=== PATIENT | male | born 1935 | race Caucasian/White ===

== ENCOUNTER 2018-01-29 08:17 | Day surgery (SDC) | payer MEDICARE, BC, OTHER ==
[~2018-01-29 08:17] MED LIST: ACETAMINOPHEN 325 MG TAB PO; AcetaZOLAMIDE 500MG INJECTION (J1120) IV; PHENYLEPHRINE HCL 10 % OPHTH. SOL 5ML OS; PROPARACAINE 0.5% OPHTH SOL 15ML OS
[2018-01-29] MEDS: TROPICAMIDE 1% OPHTH SOLN 2ML OS (09:34)
[2018-01-29] MEDS: PHENYLEPHRINE 2.5% OPHTH SOL 2ML OS (09:34)
[2018-01-29] MEDS: LIDOCAINE 3.5 % 1ML OPHTH TOPICAL GEL OU (09:34)
[2018-01-29] MEDS: OFLOXACIN 0.3 % (OCUFLOX) OPTH SOL 5ML OS (09:34)
[2018-01-29] MEDS: CYCLOPENTOLATE 2% OPHTH SOLN 2ML BTL OS (09:34)
[2018-01-29] MEDS: ASPIRIN 81 MG CHEW TABLET PO (10:10)
[2018-01-29] MEDS ORDERED: fentaNYL 100 MCG/2 ML INJECTION (J3010) As Ordered (10:58)
[2018-01-29] MEDS ORDERED: MIDAZOLAM INJ 2 MG/2 ML VIAL (J2250) As Ordered (10:58)
[2018-01-29] MEDS: POVIDONE-IODINE 5% OPHTH PREP SOL 30ML As Ordered (11:25)
[2018-01-29] MEDS: LIDOCAINE 1% SDV 5 ML VIAL As Ordered (11:30)
[2018-01-29] MEDS: BALANCED SALT IRRIGATION SOLUTION 500ML BAG (FOR OR EYE MACHINE) As Ordered (11:33)
[2018-01-29] MEDS: CEFUROXIME 1MG/0.1ML INTRACAMERAL INJ As Ordered (11:34)
[2018-01-29] MEDS: ACETYLCHOLINE OPHTH SOLN 1% 2ML (MIOCHOL-E) As Ordered (11:34)
[2018-01-29] MEDS: HEALON DUET (HEALON 10MG/ML 0.55ML & HEALON ENDOCOAT 30MG/ML 0.85ML) As Ordered (11:35)
[2018-01-29] MEDS: MANNITOL 20% BAG 250 ML IV (11:35)
[2018-01-29] MEDS ORDERED: TRIMETHOBENZAMIDE 300 MG CAP PO (12:00)
[2018-01-29] MEDS: KETOROLAC 0.5% OPHTH SOLN OS (12:00)
[2018-01-29] MEDS: AcetaZOLAMIDE 500 MG ER CAP PO (12:16)
== END 2018-01-29 12:38 | disposition home or self-care (01) ==
LOC: M SDC 08:17
DX: H25.12 Age-related nuclear cataract, left eye (principal); I48.91 Unspecified atrial fibrillation; I10 Essential (primary) hypertension; I25.10 Atherosclerotic heart disease of native coronary artery without angina pectoris; Z98.61 Coronary angioplasty status; Z86.73 Personal history of transient ischemic attack (TIA), and cerebral infarction without residual deficits; Z79.02 Long term (current) use of antithrombotics/antiplatelets; Z87.891 Personal history of nicotine dependence; Z95.810 Presence of automatic (implantable) cardiac defibrillator; I25.2 Old myocardial infarction; E78.5 Hyperlipidemia, unspecified
CPT/HCPCS: 66984